=== PATIENT | female | born 1970 | race Caucasian/White ===

== ENCOUNTER 2020-05-26 00:38 | Emergency (ER) | payer OTHER, SELFPAY ==
[~2020-05-26] VITALS: Ht 157.5 cm; Wt 95.3 kg
--- NOTE | 2020-05-26 00:42 | NUR ---
Patient to ER bed 8 to gown for evaluation. Side rails up. Report given to Shaneka HOUGH.
[2020-05-26 00:43] VITALS: BP_SYST 123
--- NOTE | 2020-05-26 00:50 | NUR ---
PT AAO AND BIB AMBULANCE C/O LEFT HIP PAIN. PT REPORTS THAT SHE CONTINUES TO INJURE HER HIPS AND THE LEFT ONE RECENTLY HAD SURGERY APPROXIMATELY ONE WEEK AGO. MAEVE ARE IN PLACE ON LEFT HIP, AREA NOTED RED AND HOT TO TOUCH. PT HAD FEVER ON ARRIVAL AND C/O 10/10 PAIN SCALE.
--- NOTE | 2020-05-26 01:05 | NUR ---
ER at bedside examining patient.
--- NOTE | 2020-05-26 01:38 | NUR ---
ALEJO CATH 16F INSERTED, APPROXIMATELY 200CC DARK YELLOW URINE OUT SO FAR. ALEJO HANGING TO GRAVITY. URINE SENT TO LAB.
--- NOTE | 2020-05-26 01:39 | NUR ---
COVID SWAB COMPLETED AND SENT TO LAB.
[2020-05-26] MEDS: NACL 0.9% 1,000 ML IV ONE (01:49)
[2020-05-26] MEDS: ONDANSETRON HCL 4 MG/2 ML VIAL IVP ONE (01:50)
[2020-05-26] MEDS: MORPHINE 4 MG/ML INJ. SYRINGE IVP ONE ×5 (01:51→11:30)
--- NOTE | 2020-05-26 01:55 | NUR ---
BC'S X 2 AND LABS DRAWN.
--- NOTE | 2020-05-26 02:00 | NUR ---
CT CONTRAST CONSENT SIGNED AND WITNESSED.
--- NOTE | 2020-05-26 02:08 | NUR ---
PT TO CT SCAN VIA [facility] MARKS.
[2020-05-26 02:10] LABS: BILIRUBIN,URINE NEGATIVE (NEGATIVE); BLOOD, URINE NEGATIVE (NEGATIVE); CLARITY/URINE CLEAR (CLEAR); COLOR,URINE YELLOW (YELLOW); GLUCOSE,URINE NEGATIVE (NEGATIVE); KETONES,URINE NEGATIVE (NEGATIVE); LEUKOCYTE ESTERASE ,URINE TRACE (NEGATIVE); NITRITE, URINE NEGATIVE (NEGATIVE); PROTEIN URINE NEGATIVE (NEGATIVE)
[2020-05-26 02:13] LABS: BASOPHILS % (AUTO) 0.4 % (0.0-2.0); EOSINOPHILS # (AUTO) 0.1 K/uL (0.0-0.4); EOSINOPHILS % (AUTO) 0.7 % (0.0-4.0); HEMATOCRIT 25.2 % (36-48); HEMOGLOBIN 8.1 g/dL (12.0-16.0); LYMPHOCYTES # (AUTO) 0.9 K/uL (1.0-5.5); MEAN CORPUSCULAR HEMOGLOBIN 23 pg (27-31); MEAN CORPUSCULAR HGB CONC 32 % (32-36); MEAN CORPUSCULAR VOLUME 73 fL (79.0-98.0); MONOCYTES # (AUTO) 0.9 K/uL (0.0-1.0); MONOCYTES % (AUTO) 8.4 % (1.7-9.3); NEUTROPHILS % (AUTO) 82.5 % (40.0-70.0); PLATELET COUNT (AUTO) 302 K/uL (130-430); RED BLOOD CELL COUNT(AUTO) 3.45 MIL/uL (4.2-6.2); RED CELL DISTRIBUTION WIDTH 18.3 % (9.0-15.0)
[2020-05-26] MEDS: LORazepam 2 MG/ML VIAL IVP ONE ×2 (02:13→05:21)
[2020-05-26 02:19] LABS: BACTERIA,URINE FEW /HPF (None Seen); RBC,URINE 0-3 /HPF (0-3)
[2020-05-26 02:27] LABS: PROTHROMBIN TIME 10.5 SECS (9.5-12.5)
[2020-05-26 02:31] LABS: CALCIUM 7.9 mg/dL (8.4-11.0); CREATININE 0.79 mg/dL (0.55-1.30); POTASSIUM 3.7 mmol/L (3.5-5.1)
--- NOTE | 2020-05-26 02:40 | NUR ---
PT BACK FROM CT, ATTACHED TO MONITOR.
[2020-05-26 02:41] LABS: ALBUMIN 2.9 g/dL (3.4-4.8); TOTAL BILIRUBIN 0.4 mg/dL (0.0-1.0)
--- NOTE | 2020-05-26 03:00 | NUR ---
TRANSFER OF CARE WITH REPORT GIVEN TO GIANLUCA HEARD WHO WILL ASSUME CARE.
--- NOTE | 2020-05-26 03:50 | NUR ---
Awaiting transfer confirmation to [facility], pt to be admitted under
--- NOTE | 2020-05-26 04:13 | NUR ---
Pt requesting pain medication. MD aware, awaiting orders.
[2020-05-26] MEDS ORDERED: MORPHINE 4 MG/ML INJ. SYRINGE ONE (04:36)
[2020-05-26] MEDS: KETAMINE 30 MG/3 ML SYRINGE IVP ONE ×2 (05:19→05:20)
--- NOTE | 2020-05-26 07:09 | NUR ---
TRANSFER INFO [facility] RM: [id number] Dr. Barton [phone] Leonela, RN spoke to Kallie, Nursing Sup. -ELIZA Arreguin, stated transfer info is correct and Dr. Martinez was covering for Dr. Barton. -Thien Roach, spoke to Dr. Barton who was covering for Dr. Martinez. Addendum: 05/26/20 at 1059 by SHELBIE UPDATED TRANSFER INFO [facility] Dr. Martinez [phone] RM: [id number] spoke to Jj Farfan
--- NOTE | 2020-05-26 07:10 | NUR ---
Report given to Laisha HOUGH for continuation of care.
--- NOTE | 2020-05-26 07:15 | NUR ---
Received report on pt. Pt currently sleeping, equal chest rise and fall. No acute distress noted.
--- NOTE | 2020-05-26 07:40 | NUR ---
Kallie, Nursing Sup, called to request fax of pt's covid results fax: [phone]
--- NOTE | 2020-05-26 07:46 | NUR ---
Received call from Melissa POND from [facility] to make aware about need for authorization from insurance regarding transfer.
[2020-05-26] MEDS: PIPERACILLIN/TAZO 3.375 GM in NS 50 ML IV ONE (08:19)
[2020-05-26] MEDS ORDERED: PIPERACILLIN/TAZOBACTAM 3.375 GM/VIAL (ZOSYN) IV ONE (08:35)
--- NOTE | 2020-05-26 08:51 | NUR ---
Pt receiving zosyn, no adverse reactions noted. Emptied out 500 ml of orange urine from asif.
--- NOTE | 2020-05-26 09:27 | NUR ---
Patient resting in bed, equal chest rise and fall, arousable. No acute distress noted. Remains on 2L O2 via NC, O2 sat 97%.
--- NOTE | 2020-05-26 10:02 | NUR ---
per Mariya, [employer], requested fax of pt clinicals and x-ray report. fax: [phone]
--- NOTE | 2020-05-26 11:56 | NUR ---
REPOSITIONED FOR COMFORT, LINEN CHANGE
--- NOTE | 2020-05-26 12:37 | NUR ---
[facility] UPDATE, ROOM 454 PHONE [phone] SHELBY ADMITTING
--- NOTE | 2020-05-26 12:44 | NUR ---
Report given to Kalie HOUGH at [phone] at [facility]. Patient will be going to room 454. Updates also given to patient's daughter Orlando and notified of transfer.
--- NOTE | 2020-05-26 14:01 | NUR ---
RESP UNLABORED, SKIN WARM AND DRY. CALM, ALERT, NO DISTRESS, REPOSITIONED FOR COMFORT
--- NOTE | 2020-05-26 15:10 | NUR ---
Patient to be transferred to [facility]. Is being transferred due to higher level of care. Receiving facility has accepting physician and available space. ER physician has signed transfer form. Patient or responsible alliance party has agreed to transfer and signed form. Patient belongings inventoried and will be sent with patient. Copy of nursing notes, lab reports, EKG, Physicians Orders and X-rays to be sent with patient. Report called to HOLLY at receiving facility.
[2020-05-26 15:11] VITALS: BP_SYST 120
== END 2020-05-26 15:10 | disposition short-term general hospital (02) ==
LOC: SED 00:38
DX: S73.015A Posterior dislocation of left hip, initial encounter (principal); X50.0XXA Overexertion from strenuous movement or load, initial encounter; Y93.89 Activity, other specified; Y92.89 Other specified places as the place of occurrence of the external cause; Y99.8 Other external cause status
CPT/HCPCS: 36415; 72170; 72193; 73502; 80053; 81000; 82550; 83605; 85025; 85610; 85730; 87040; 87081; 87086; 87426; 96361; 96365; 96375; 96376; 99285; J2060; J2270; J2405; J2543; J7030; Q9967

== ENCOUNTER 2020-06-02 23:59 | Emergency (ER) | payer OTHER, SELFPAY ==
[~2020-06-02] VITALS: Ht 157.5 cm; Wt 95.3 kg
[2020-06-03 00:30] VITALS: BP_SYST 144
[2020-06-03] MEDS ORDERED: MORPHINE 4 MG/ML INJ. SYRINGE IVP ONE ×2 (03:00→07:00)
[2020-06-03 03:56] LABS: BASOPHILS # (AUTO) 0.1 K/uL (0.0-0.2); BASOPHILS % (AUTO) 0.8 % (0.0-2.0); EOSINOPHILS # (AUTO) 0.3 K/uL (0.0-0.4); HEMATOCRIT 28.1 % (36-48); HEMOGLOBIN 9.1 g/dL (12.0-16.0); LYMPHOCYTES # (AUTO) 1.7 K/uL (1.0-5.5); MEAN CORPUSCULAR HEMOGLOBIN 25 pg (27-31); MEAN CORPUSCULAR HGB CONC 32 % (32-36); MEAN CORPUSCULAR VOLUME 77 fL (79.0-98.0); MONOCYTES # (AUTO) 0.8 K/uL (0.0-1.0); MONOCYTES % (AUTO) 8.8 % (1.7-9.3); NEUTROPHILS # (AUTO) 6.5 K/uL (1.8-7.7); NEUTROPHILS % (AUTO) 69.4 % (40.0-70.0); PLATELET COUNT (AUTO) 454 K/uL (130-430); RED BLOOD CELL COUNT(AUTO) 3.65 MIL/uL (4.2-6.2); RED CELL DISTRIBUTION WIDTH 20.4 % (9.0-15.0); WHITE BLOOD COUNT (AUTO) 9.4 K/uL (4.8-10.8)
[2020-06-03 04:00] LABS: CALCIUM 8.5 mg/dL (8.4-11.0); CREATININE 0.77 mg/dL (0.55-1.30); POTASSIUM 3.5 mmol/L (3.5-5.1)
[2020-06-03 04:05] LABS: ALBUMIN 3.1 g/dL (3.4-4.8); PROTHROMBIN TIME 10.4 SECS (9.5-12.5); TOTAL BILIRUBIN 0.3 mg/dL (0.0-1.0)
[2020-06-03 10:36] VITALS: BP_SYST 110
== END 2020-06-03 11:02 | disposition short-term general hospital (02) ==
LOC: SED 23:59
DX: S70.02XA Contusion of left hip, initial encounter (principal); D64.9 Anemia, unspecified; Z20.828 Contact with and (suspected) exposure to other viral communicable diseases; Z88.6 Allergy status to analgesic agent; W45.8XXA Other foreign body or object entering through skin, initial encounter; Y93.89 Activity, other specified; Y92.89 Other specified places as the place of occurrence of the external cause; Y99.8 Other external cause status
CPT/HCPCS: 36415; 72193; 80053; 85025; 85610; 87426; 96374; 96376; 99285; J2270; Q9967

== ENCOUNTER 2020-07-27 06:28 | Emergency (ER) | payer OTHER, MEDICAID ==
[~2020-07-27] VITALS: Ht 154.9 cm; Wt 90.7 kg
[2020-07-27 06:31] VITALS: BP_SYST 140
[2020-07-27 07:23] LABS: BASOPHILS # (AUTO) 0.1 K/uL (0.0-0.2); EOSINOPHILS # (AUTO) 0.3 K/uL (0.0-0.4); EOSINOPHILS % (AUTO) 4.9 % (0.0-4.0); HEMATOCRIT 31.6 % (36-48); HEMOGLOBIN 10.1 g/dL (12.0-16.0); LYMPHOCYTES # (AUTO) 1.4 K/uL (1.0-5.5); LYMPHOCYTES % (AUTO) 25.9 % (20.5-51.5); MEAN CORPUSCULAR HEMOGLOBIN 22 pg (27-31); MEAN CORPUSCULAR HGB CONC 32 % (32-36); MEAN CORPUSCULAR VOLUME 69 fL (79.0-98.0); MONOCYTES # (AUTO) 0.5 K/uL (0.0-1.0); MONOCYTES % (AUTO) 9.7 % (1.7-9.3); NEUTROPHILS # (AUTO) 3.2 K/uL (1.8-7.7); NEUTROPHILS % (AUTO) 58.5 % (40.0-70.0); PLATELET COUNT (AUTO) 376 K/uL (130-430); RED BLOOD CELL COUNT(AUTO) 4.55 MIL/uL (4.2-6.2); RED CELL DISTRIBUTION WIDTH 17.4 % (9.0-15.0); WHITE BLOOD COUNT (AUTO) 5.5 K/uL (4.8-10.8)
[2020-07-27] MEDS: MORPHINE 4 MG/ML INJ. SYRINGE IVP ONE (07:32)
[2020-07-27 07:41] LABS: CALCIUM 8.3 mg/dL (8.4-11.0); CREATININE 0.79 mg/dL (0.55-1.30); POTASSIUM 3.6 mmol/L (3.5-5.1)
[2020-07-27 07:45] LABS: ALBUMIN 2.8 g/dL (3.4-4.8); TOTAL BILIRUBIN 0.2 mg/dL (0.0-1.0)
[2020-07-27] MEDS: VANCOMYCIN HCL 1,000 MG in NS 250 ML IV ONE (07:47)
[2020-07-27 08:00] LABS: ERYTHROCYTE SEDIMENTATION RATE 41 MM/HR (0-20)
[2020-07-27] MEDS: PIPERACILLIN/TAZO 3.375 GM in NS 50 ML IV ONE (08:15)
[2020-07-27] MEDS: fentaNYL CITRATE/PF 100 MCG/2 ML AMP IVP ONE (10:17)
[2020-07-27 12:00] VITALS: BP_SYST 175
== END 2020-07-27 12:00 | disposition home or self-care (01) ==
LOC: SED 06:28
DX: M25.552 Pain in left hip (principal); Z88.6 Allergy status to analgesic agent
CPT/HCPCS: 36415; 72193-TC; 76376; 80053; 85025; 85651-TC; 87040-TC; 87070-TC; 96365; 96375; 99284

== ENCOUNTER 2020-09-05 11:54 | Emergency (ER) | payer OTHER, MEDICAID ==
[~2020-09-05] VITALS: Ht 154.9 cm; Wt 95.3 kg
[2020-09-05 12:20] VITALS: BP_SYST 127
--- NOTE | 2020-09-05 12:30 | NUR ---
Pt triaged and placed in fast track.
--- NOTE | 2020-09-05 12:40 | NUR ---
Pt walked in to ER with c/o left hip pain 8/10 x3 days. 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 No other complaints at this time. V/S stable, pt is afebrile. No distress noted
--- NOTE | 2020-09-05 12:45 | NUR ---
Patient transported to radiology via wheelchair, accompanied by staff.
--- NOTE | 2020-09-05 12:55 | NUR ---
ER Dr. Mejia at bedside examining patient.
[2020-09-05] MEDS ORDERED: NACL 0.9% 1,000 ML IV ONE (13:00)
[2020-09-05] MEDS ORDERED: ONDANSETRON HCL 4 MG/2 ML VIAL IVP ONE (13:00)
[2020-09-05] MEDS ORDERED: MORPHINE 4 MG/ML INJ. SYRINGE IVP ONE (13:00)
[2020-09-05 13:08] LABS: BASOPHILS # (AUTO) 0.1 K/uL (0.0-0.2); BASOPHILS % (AUTO) 0.7 % (0.0-2.0); EOSINOPHILS # (AUTO) 0.3 K/uL (0.0-0.4); EOSINOPHILS % (AUTO) 3.3 % (0.0-4.0); HEMATOCRIT 30.4 % (36-48); HEMOGLOBIN 9.8 g/dL (12.0-16.0); LYMPHOCYTES # (AUTO) 1.3 K/uL (1.0-5.5); LYMPHOCYTES % (AUTO) 15.6 % (20.5-51.5); MEAN CORPUSCULAR HEMOGLOBIN 21 pg (27-31); MEAN CORPUSCULAR HGB CONC 32 % (32-36); MEAN CORPUSCULAR VOLUME 65 fL (79.0-98.0); MONOCYTES # (AUTO) 0.7 K/uL (0.0-1.0); MONOCYTES % (AUTO) 8.5 % (1.7-9.3); NEUTROPHILS # (AUTO) 6.1 K/uL (1.8-7.7); NEUTROPHILS % (AUTO) 71.9 % (40.0-70.0); PLATELET COUNT (AUTO) 444 K/uL (130-430); RED BLOOD CELL COUNT(AUTO) 4.65 MIL/uL (4.2-6.2); RED CELL DISTRIBUTION WIDTH 17.2 % (9.0-15.0); WHITE BLOOD COUNT (AUTO) 8.5 K/uL (4.8-10.8)
[2020-09-05 13:24] LABS: C-REACTIVE PROTEIN QUANT 7.9 mg/dL (0-0.5)
[2020-09-05 13:25] LABS: CREATININE 0.75 mg/dL (0.55-1.30); POTASSIUM 3.9 mmol/L (3.5-5.1)
[2020-09-05 13:26] LABS: INR 0.9 (0.8-1.2); PROTHROMBIN TIME 9.7 SECS (9.5-12.5)
[2020-09-05 13:29] LABS: ALBUMIN 3.1 g/dL (3.4-4.8); TOTAL BILIRUBIN 0.3 mg/dL (0.0-1.0)
[2020-09-05 14:01] LABS: ERYTHROCYTE SEDIMENTATION RATE 74 MM/HR (0-20)
--- NOTE | 2020-09-05 14:10 | NUR ---
# 20 gauge angiocath placed to RFA. Use of asceptic technique. Opsite placed over site. Blood return noted. Flushed with 10 cc of normal saline. No evidence of infiltration noted. Patient tolerated well.
--- NOTE | 2020-09-05 16:07 | NUR ---
PATIENT PENDING DISCHARGE. PATIENT'S DAUGHTER TO PICK HER UP, AUGUSTINE. CALLED NUMBER ON FILE LEFT MESSAGE TO CALL US BACK.
[2020-09-05 17:25] VITALS: BP_SYST 127
--- NOTE | 2020-09-05 17:25 | NUR ---
Patient given written and verbal discharge instructions and verbalizes understanding. ER MD discussed with patient the results and treatment provided. Patient in stable condition. ID arm band removed. IV catheter removed intact and dressing applied, no active bleeding. Rx of Divide and Levoquin given. Patient educated on pain management and to follow up with PMD. Pain Scale 0. Opportunity for questions provided and answered. Medication side effect fact sheet provided.
== END 2020-09-05 17:25 | disposition home or self-care (01) ==
LOC: SED 11:54
DX: M25.552 Pain in left hip (principal); Z88.6 Allergy status to analgesic agent
CPT/HCPCS: 36415; 73502; 73552; 73700; 76376; 80053; 85025; 85610; 85651; 85730; 86140; 87040; 93005; 96361; 96374; 96375; 99284; J2270; J2405; J7030

== ENCOUNTER 2020-09-08 11:59 | Emergency (ER) | payer OTHER, MEDICAID ==
[~2020-09-08] VITALS: Ht 154.9 cm; Wt 95.3 kg
[2020-09-08 12:00] VITALS: BP_SYST 123
--- NOTE | 2020-09-08 12:00 | NUR ---
BROUGHT INTO TRIAGE TENT AND TRIAGED. AWAITING ER BED.
--- NOTE | 2020-09-08 12:25 | NUR ---
DR HANCOCK OUT TO TENT FOR EVALUATION OF PT.
--- NOTE | 2020-09-08 12:30 | NUR ---
Pt walked in to ER with c/o hip pain, reports being here 3 days ago with the same complaint. V/S stable, pt is afebrile. No distress noted.
[2020-09-08] MEDS ORDERED: LIDOCAINE PATCH 5% 1 EA TP ONE (13:15)
[2020-09-08] MEDS ORDERED: LIDOCAINE PATCH 5% 1 EA TP SCH (13:15)
--- NOTE | 2020-09-08 13:25 | NUR ---
Called pharmacy to request lidocaine patch ordered by
[2020-09-08 13:38] VITALS: BP_SYST 123
--- NOTE | 2020-09-08 13:38 | NUR ---
Patient given written and verbal discharge instructions and verbalizes understanding. ER MD discussed with patient the results and treatment provided. Patient in stable condition. ID arm band removed. Rx of Lidocaine and Voltaren gel given. Patient educated on pain management and to follow up with PMD. Pain Scale 0/10. Opportunity for questions provided and answered. Medication side effect fact sheet provided.
== END 2020-09-08 13:38 | disposition home or self-care (01) ==
LOC: SED 11:59
DX: M25.552 Pain in left hip (principal); I10 Essential (primary) hypertension
CPT/HCPCS: 99281

== ENCOUNTER 2020-09-28 22:39 | Emergency (ER) | payer OTHER, MEDICAID, SELFPAY ==
[~2020-09-28] VITALS: Ht 154.9 cm; Wt 95.3 kg
[2020-09-28 23:05] VITALS: BP_SYST 159
[2020-09-28] MEDS ORDERED: ONDANSETRON HCL 4 MG/2 ML VIAL IVP ONE (23:30)
[2020-09-28] MEDS ORDERED: NACL 0.9% 2,000 ML IV ONE (23:30)
[2020-09-28] MEDS ORDERED: MORPHINE 4 MG/ML INJ. SYRINGE IVP ONE (23:30)
[2020-09-28 23:56] LABS: BASOPHILS # (AUTO) 0.1 K/uL (0.0-0.2); BASOPHILS % (AUTO) 0.7 % (0.0-2.0); EOSINOPHILS # (AUTO) 0.4 K/uL (0.0-0.4); HEMATOCRIT 31.5 % (36-48); HEMOGLOBIN 10.2 g/dL (12.0-16.0); LYMPHOCYTES # (AUTO) 1.6 K/uL (1.0-5.5); LYMPHOCYTES % (AUTO) 20.9 % (20.5-51.5); MEAN CORPUSCULAR HEMOGLOBIN 21 pg (27-31); MEAN CORPUSCULAR HGB CONC 32 % (32-36); MEAN CORPUSCULAR VOLUME 63 fL (79.0-98.0); MONOCYTES # (AUTO) 0.8 K/uL (0.0-1.0); MONOCYTES % (AUTO) 10.1 % (1.7-9.3); NEUTROPHILS # (AUTO) 4.7 K/uL (1.8-7.7); NEUTROPHILS % (AUTO) 63.3 % (40.0-70.0); PLATELET COUNT (AUTO) 465 K/uL (130-430); RED BLOOD CELL COUNT(AUTO) 4.99 MIL/uL (4.2-6.2); RED CELL DISTRIBUTION WIDTH 17.3 % (9.0-15.0); WHITE BLOOD COUNT (AUTO) 7.5 K/uL (4.8-10.8)
[2020-09-29 00:19] LABS: CALCIUM 9.1 mg/dL (8.4-11.0); CREATININE 0.82 mg/dL (0.55-1.30)
[2020-09-29 00:39] LABS: ALBUMIN 3.1 g/dL (3.4-4.8); TOTAL BILIRUBIN 0.3 mg/dL (0.0-1.0)
[2020-09-29] MEDS ORDERED: LIDOCAINE PATCH 5% 1 EA TP ONE ×2 (00:45→01:48)
[2020-09-29] MEDS ORDERED: MORPHINE 4 MG/ML INJ. SYRINGE IVP ONE (01:00)
[2020-09-29 01:09] LABS: ERYTHROCYTE SEDIMENTATION RATE 72 MM/HR (0-20)
[2020-09-29 07:45] VITALS: BP_SYST 151
== END 2020-09-29 07:45 | disposition home or self-care (01) ==
LOC: SED 22:39
DX: M25.552 Pain in left hip (principal); Z88.6 Allergy status to analgesic agent
CPT/HCPCS: 36415; 73502; 74177; 76376; 80053; 83605; 85025; 85651; 87040; 96361; 96374; 96375; 96376; 99284; J2270 ×2; J2405; J7030; Q9967

== ENCOUNTER 2020-10-07 01:26 | Emergency (ER) | payer OTHER, MEDICAID, SELFPAY ==
[~2020-10-07] VITALS: Ht 154.9 cm; Wt 95.3 kg
[2020-10-07 01:26] VITALS: BP_SYST 139
[2020-10-07] MEDS ORDERED: MORPHINE 4 MG/ML INJ. SYRINGE IM ONE (02:15)
[2020-10-07 03:06] LABS: BASOPHILS # (AUTO) 0.1 K/uL (0.0-0.2); BASOPHILS % (AUTO) 0.7 % (0.0-2.0); EOSINOPHILS # (AUTO) 0.3 K/uL (0.0-0.4); HEMATOCRIT 30.3 % (36-48); HEMOGLOBIN 9.7 g/dL (12.0-16.0); LYMPHOCYTES # (AUTO) 1.7 K/uL (1.0-5.5); LYMPHOCYTES % (AUTO) 19.6 % (20.5-51.5); MEAN CORPUSCULAR HEMOGLOBIN 20 pg (27-31); MEAN CORPUSCULAR HGB CONC 32 % (32-36); MONOCYTES # (AUTO) 0.6 K/uL (0.0-1.0); MONOCYTES % (AUTO) 7.6 % (1.7-9.3); NEUTROPHILS # (AUTO) 5.7 K/uL (1.8-7.7); NEUTROPHILS % (AUTO) 68.1 % (40.0-70.0); PLATELET COUNT (AUTO) 471 K/uL (130-430); RED BLOOD CELL COUNT(AUTO) 4.77 MIL/uL (4.2-6.2); RED CELL DISTRIBUTION WIDTH 18.1 % (9.0-15.0); WHITE BLOOD COUNT (AUTO) 8.4 K/uL (4.8-10.8)
[2020-10-07 03:09] LABS: MEAN CORPUSCULAR VOLUME 64 fL (79.0-98.0)
[2020-10-07 03:13] LABS: CALCIUM 8.5 mg/dL (8.4-11.0); CREATININE 0.8 mg/dL (0.55-1.30); POTASSIUM 3.8 mmol/L (3.5-5.1)
[2020-10-07 03:18] LABS: ALBUMIN 2.8 g/dL (3.4-4.8); TOTAL BILIRUBIN 0.2 mg/dL (0.0-1.0)
[2020-10-07 05:18] VITALS: BP_SYST 139
== END 2020-10-07 05:18 | disposition home or self-care (01) ==
LOC: SED 01:26
DX: L02.416 Cutaneous abscess of left lower limb (principal); I10 Essential (primary) hypertension; Z88.6 Allergy status to analgesic agent
CPT/HCPCS: 36415; 80053; 83605; 85025; 96372; 99283

== ENCOUNTER 2020-11-03 13:16 | Emergency (ER) | payer OTHER, MEDICAID, SELFPAY ==
[~2020-11-03] VITALS: Ht 154.9 cm; Wt 95.3 kg
[2020-11-03 13:45] VITALS: BP_SYST 142
[2020-11-03 14:04] LABS: BASOPHILS # (AUTO) 0.1 K/uL (0.0-0.2); BASOPHILS % (AUTO) 0.9 % (0.0-2.0); EOSINOPHILS # (AUTO) 0.3 K/uL (0.0-0.4); EOSINOPHILS % (AUTO) 4.9 % (0.0-4.0); HEMATOCRIT 30.9 % (36-48); HEMOGLOBIN 9.8 g/dL (12.0-16.0); LYMPHOCYTES # (AUTO) 1.4 K/uL (1.0-5.5); LYMPHOCYTES % (AUTO) 23.3 % (20.5-51.5); MEAN CORPUSCULAR HEMOGLOBIN 22 pg (27-31); MEAN CORPUSCULAR HGB CONC 32 % (32-36); MEAN CORPUSCULAR VOLUME 69 fL (79.0-98.0); MONOCYTES # (AUTO) 0.6 K/uL (0.0-1.0); MONOCYTES % (AUTO) 10.2 % (1.7-9.3); NEUTROPHILS # (AUTO) 3.8 K/uL (1.8-7.7); NEUTROPHILS % (AUTO) 60.7 % (40.0-70.0); PLATELET COUNT (AUTO) 336 K/uL (130-430); RED BLOOD CELL COUNT(AUTO) 4.45 MIL/uL (4.2-6.2); RED CELL DISTRIBUTION WIDTH 24.7 % (9.0-15.0); WHITE BLOOD COUNT (AUTO) 6.2 K/uL (4.8-10.8)
[2020-11-03 14:16] LABS: C-REACTIVE PROTEIN QUANT 2.8 mg/dL (0-0.5); CALCIUM 8.6 mg/dL (8.4-11.0); CREATININE 0.86 mg/dL (0.55-1.30); POTASSIUM 3.8 mmol/L (3.5-5.1)
[2020-11-03 14:21] LABS: PROTHROMBIN TIME 10.1 SECS (9.5-12.5)
[2020-11-03 14:22] LABS: ALBUMIN 3.1 g/dL (3.4-4.8); TOTAL BILIRUBIN 0.2 mg/dL (0.0-1.0)
[2020-11-03] MEDS ORDERED: TRAM50TA2 PO (14:52)
[2020-11-03] MEDS ORDERED: BACITRACIN 1 GM OINT TP ONE (15:00)
[2020-11-03 18:03] VITALS: BP_SYST 132
== END 2020-11-03 16:00 | disposition home or self-care (01) ==
LOC: SED 13:16
DX: T81.30XA Disruption of wound, unspecified, initial encounter (principal); I10 Essential (primary) hypertension; Z88.6 Allergy status to analgesic agent; X58.XXXA Exposure to other specified factors, initial encounter; Y93.89 Activity, other specified; Y92.89 Other specified places as the place of occurrence of the external cause; Y99.8 Other external cause status
CPT/HCPCS: 36415; 73502; 80053; 83605; 85025; 85610-TC; 85730-TC; 86140; 99283; 99284

== ENCOUNTER 2020-12-03 09:29 | Emergency (ER) | payer OTHER, MEDICAID, SELFPAY ==
[~2020-12-03] VITALS: Ht 157.5 cm; Wt 95.3 kg
[~2020-12-03 09:29] MED LIST: TRAM50TA2 PO
[2020-12-03 09:38] VITALS: BP_SYST 158
[2020-12-03] MEDS: NACL 0.9% 1,000 ML IV ONE (10:48)
[2020-12-03] MEDS: MORPHINE 4 MG/ML INJ. SYRINGE IVP ONE ×3 (10:49→21:20)
[2020-12-03] MEDS: ONDANSETRON HCL 4 MG/2 ML VIAL IVP ONE (10:49)
[2020-12-03 11:01] LABS: CALCIUM 8.9 mg/dL (8.4-11.0); CREATININE 0.74 mg/dL (0.55-1.30); POTASSIUM 4.1 mmol/L (3.5-5.1)
[2020-12-03 11:06] LABS: ALBUMIN 3.4 g/dL (3.4-4.8); TOTAL BILIRUBIN 0.2 mg/dL (0.0-1.0)
[2020-12-03 11:11] LABS: BASOPHILS # (AUTO) 0.1 K/uL (0.0-0.2); BASOPHILS % (AUTO) 0.9 % (0.0-2.0); EOSINOPHILS # (AUTO) 0.5 K/uL (0.0-0.4); EOSINOPHILS % (AUTO) 5.2 % (0.0-4.0); HEMATOCRIT 31.2 % (36-48); HEMOGLOBIN 9.8 g/dL (12.0-16.0); LYMPHOCYTES # (AUTO) 1.4 K/uL (1.0-5.5); LYMPHOCYTES % (AUTO) 16.1 % (20.5-51.5); MEAN CORPUSCULAR HEMOGLOBIN 22 pg (27-31); MEAN CORPUSCULAR HGB CONC 32 % (32-36); MEAN CORPUSCULAR VOLUME 70 fL (79.0-98.0); MONOCYTES # (AUTO) 0.6 K/uL (0.0-1.0); MONOCYTES % (AUTO) 7.3 % (1.7-9.3); NEUTROPHILS # (AUTO) 6.2 K/uL (1.8-7.7); NEUTROPHILS % (AUTO) 70.5 % (40.0-70.0); PLATELET COUNT (AUTO) 467 K/uL (130-430); RED BLOOD CELL COUNT(AUTO) 4.44 MIL/uL (4.2-6.2); RED CELL DISTRIBUTION WIDTH 20.8 % (9.0-15.0); WHITE BLOOD COUNT (AUTO) 8.8 K/uL (4.8-10.8)
[2020-12-03 11:13] LABS: C-REACTIVE PROTEIN QUANT 1.4 mg/dL (0-0.5)
[2020-12-03] MEDS: fentaNYL CITRATE/PF 100 MCG/2 ML AMP IVP ONE (11:34)
[2020-12-03 12:22] LABS: ERYTHROCYTE SEDIMENTATION RATE 44 MM/HR (0-20)
[2020-12-03] MEDS ORDERED: PIPERACILLIN/TAZOBACTAM 3.375 GM/VIAL (ZOSYN) IV ONE ×2 (14:50→14:51)
[2020-12-03] MEDS: PIPERACILLIN/TAZO 3.375 GM in NS 50 ML IV ONE (15:26)
[2020-12-03] MEDS ORDERED: MORPHINE 4 MG/ML INJ. SYRINGE ONE (21:21)
[2020-12-04 02:12] VITALS: BP_SYST 156
== END 2020-12-04 02:07 | disposition short-term general hospital (02) ==
LOC: SED 09:29
DX: S72.092A Other fracture of head and neck of left femur, initial encounter for closed fracture (principal); I10 Essential (primary) hypertension; Z88.6 Allergy status to analgesic agent; Z20.822 Contact with and (suspected) exposure to COVID-19; X50.9XXA Other and unspecified overexertion or strenuous movements or postures, initial encounter; Y93.89 Activity, other specified; Y92.89 Other specified places as the place of occurrence of the external cause; Y99.8 Other external cause status
CPT/HCPCS: 36415; 73502; 80053; 83605; 85025; 85651; 86140; 87040; 87070; 87081; 87426; 96361; 96365; 96375; 96376; 99285; J2270; J2405; J2543; J3010; J7030

== ENCOUNTER 2020-12-28 06:28 | Emergency (ER) | payer OTHER, MEDICAID ==
[~2020-12-28] VITALS: Ht 157.5 cm; Wt 97.5 kg
[2020-12-28 06:35] VITALS: BP_SYST 159
[2020-12-28] MEDS ORDERED: MORPHINE 4 MG INJ. 4 MG/ML VIAL IM ONE (07:15)
[2020-12-28 09:45] LABS: BASOPHILS # (AUTO) 0.1 K/uL (0.0-0.2); BASOPHILS % (AUTO) 1.1 % (0.0-2.0); EOSINOPHILS # (AUTO) 0.3 K/uL (0.0-0.4); EOSINOPHILS % (AUTO) 4.3 % (0.0-4.0); HEMATOCRIT 32.1 % (36-48); HEMOGLOBIN 10.6 g/dL (12.0-16.0); LYMPHOCYTES # (AUTO) 0.9 K/uL (1.0-5.5); LYMPHOCYTES % (AUTO) 14.5 % (20.5-51.5); MEAN CORPUSCULAR HEMOGLOBIN 29 pg (27-31); MEAN CORPUSCULAR HGB CONC 33 % (32-36); MEAN CORPUSCULAR VOLUME 87 fL (79.0-98.0); MONOCYTES # (AUTO) 0.6 K/uL (0.0-1.0); MONOCYTES % (AUTO) 8.7 % (1.7-9.3); NEUTROPHILS # (AUTO) 4.5 K/uL (1.8-7.7); NEUTROPHILS % (AUTO) 71.4 % (40.0-70.0); PLATELET COUNT (AUTO) 309 K/uL (130-430); RED CELL DISTRIBUTION WIDTH 18.5 % (9.0-15.0); WHITE BLOOD COUNT (AUTO) 6.4 K/uL (4.8-10.8)
[2020-12-28 09:55] LABS: CALCIUM 8.8 mg/dL (8.4-11.0); CREATININE 0.79 mg/dL (0.55-1.30); POTASSIUM 3.7 mmol/L (3.5-5.1)
[2020-12-28 10:00] LABS: PROTHROMBIN TIME 10.2 SECS (9.5-12.5)
[2020-12-28 10:02] LABS: ALBUMIN 2.9 g/dL (3.4-4.8); TOTAL BILIRUBIN 0.5 mg/dL (0.0-1.0)
[2020-12-28 10:07] LABS: C-REACTIVE PROTEIN QUANT 3.3 mg/dL (0-0.5)
[2020-12-28 11:59] VITALS: BP_SYST 133
== END 2020-12-28 11:59 | disposition left against medical advice (07) ==
LOC: SED 06:28
DX: M25.552 Pain in left hip (principal); I10 Essential (primary) hypertension; Z88.6 Allergy status to analgesic agent; X58.XXXA Exposure to other specified factors, initial encounter; Y93.89 Activity, other specified; Y92.89 Other specified places as the place of occurrence of the external cause; Y99.8 Other external cause status
CPT/HCPCS: 36415; 73502; 80053; 83605; 85025; 85610; 85730; 86140; 96372; 99283; J2270; 99285